=== PATIENT | female | born 1965 | race Caucasian/White ===

== ENCOUNTER 2025-10-08 08:58 | Emergency (ER) | payer BC ==
[~2025-10-08] VITALS: Ht 165.1 cm; Wt 104.0 kg
[~2025-10-08 08:58] MED LIST: ALBU8HFA IH; ESTR1TAB28 PO; GABA300C PO; LEVE250T PO; LEVO125T8 PO; LIOT5TAB10 PO; TRAZ150T78 PO
[2025-10-08 09:07] VITALS: TEMP 99
[2025-10-08 09:24] LABS: LEUKOCYTE ESTERASE ,URINE TRACE (Neg); NITRITES, URINE NEGATIVE (Neg); OCCULT BLOOD,URINE NEGATIVE (Neg)
[2025-10-08 09:25] LABS: URINE HCG NEGATIVE (NEG)
[2025-10-08 09:39] LABS: MEAN PLATELET VOLUME 7.6 FL (7.4-10.4); RED CELL DISTRIBUTION WIDTH 13.5 % (11.5-14.5)
--- NOTE | 2025-10-08 09:51 | Physician Documentation ---
History of Present Illness Chief Complaint: Abdominal Pain Stated Complaint: ABD PAIN Time Seen by MD: 09:22 HPI This is a 59-year-old female with a history of hypothyroidism, depression, s/p appendicectomy and cholecystectomy presents to the ER with a chief complaint of abdominal pain and diarrhea since the last one month which worsened in the last two days. Patient states that she has been having low-grade fever, chronic abdominal pain 6/10 in intensity, diarrhea alternating with constipation since the last one month. Her diarrhea is dark green watery about 3-4 episodes per day on and off. She denies any recent antibiotics. She thinks it might be related to the tenzin candy that she started recently. She also takes baby aspirin for presumed TIAs. Patient also states she had occasional dark stools although not black. She denies any travel or sick contacts. She initially presented to the procedure urgent care and was asked to go to [facility] ER for further imaging. She also thinks she might be having lactose intolerance as she relates her diarrhea to cheese and milk intake recently. Timing/Duration: months Quality/Severity: moderate Location: RUQ, epigastric Radiation: periumbilical Activities on Onset: spontaneous Associated Symptoms: fever, diarrhea Medication Reconciliation Allergies: Coded Allergies: Penicillins (Verified Allergy, Unknown, 07/22/23) Scheduled Cefpodoxime Proxetil (Cefpodoxime Proxetil), 1 TAB PO Q12H Estradiol (Estradiol), 1 TAB PO DAILY, (Reported) Levetiracetam (Levetiracetam), 500 MG PO BID Levothyroxine Sodium (Levothyroxine Sodium), 1 TAB PO QAM, (Reported) Liothyronine Sodium (Liothyronine Sodium), 2 TAB PO DAILY, (Reported) Pantoprazole Sodium (PROTONIX tablet), 40 MG PO DAILY Scheduled PRN Gabapentin (Neurontin), 1 CAP PO TID PRN for pain, (Reported) Trazodone Hcl (Trazodone Hcl), 1 TAB PO HS PRN for sleep, (Reported) albuterol inhaler (Pro-Air Inhaler), 2 PUFFS IH Q4H PRN for SOB or wheezing, (Reported) Past Medical History Past Medical History: CVA/TIA/Stroke, Diabetes, Thyroid (unspecified) Past Surgical History: noncontributory Drug Use: none Lives In: Home Review of Systems Constitutional Constitutional: Low-grade fever, chills, no dizziness, weakness, weight gain or loss Eyes: No pain, erythema, discharge, blurring of vision ENT: No sore throat, epistaxis, tinnitus Cardiovascular: No palpitations, syncope, lower extremity edema, paroxysmal nocturnal dyspnea Respiratory: No hemoptysis Gastrointestinal: Positive for diarrhea, occasional constipation, abdominal pain. Normal appetite. No nausea, vomiting, hematemesis, bloating, melena or fresh blood Genitourinary: No frequency, urgency, nocturia, hematuria or dysuria Musculoskeletal: No arthralgias or myalgias Integumentary: No change in skin, hair, nails. No swelling, bruising, abrasions Neurologic: No headache, neck pain, numbness or tingling of the extremities, weakness Psychiatric: No delusions, depression, loss of interest in normal activity or change in sleep pattern, hallucinations, suicidal ideations Endocrine: No fatigue, weakness, polydipsia, polyuria, change in appetite, heat or cold intolerance, sweating, dry skin Hematological: No bleeding, petechiae, bruising Allergies: No asthma or urticaria Physical Exam Vital Signs: Temperature: 99.0, Source: Oral, Heart Rate: 79, Respiratory Rate: 16, BP: 159/46, Pulse Oximetry: 95, Weight: 104.000 Oxygen Flow Rate: 0 Physical Exam General: Obese middle-aged female, Awake and Alert, in mild acute distress. HEENT: Conjunctiva pink, Sclera clear, Mucus Membranes dry Neck: Supple without masses and tenderness. Resp: Unlabored. Equal breath sounds bilaterally. Heart: Regular rhythm, normal S1 and S2, no rub, murmur or gallop, muffled heart sounds. Abdomen: Tenderness to palpation in the right upper quadrant and epigastric region. Soft no organomegaly. Normal bowel sounds x4 quadrant normoactive. No guarding or rigidity. Extremities: Normal ROM, no swelling, nontender. No cyanosis,clubbing or edema. BRANCH SALES AND SERVICE REPRESENTATIVE: No gross motor or sensory abnormalities. Skin: Warm and Dry. Progress Results/Orders Results/Orders Orders - RENEE VALLADARES, RES Chest,Single View (10/08/25 ) Ct Abdomen Pelvis (10/08/25 09:39) Morphine 4mg/Ml Inj. (Morphine Inj.) (10/08/25 09:40) Lidocaine 5% Patch (Lidoderm 5% Patch) (10/08/25 09:45) Vital Signs 10/08/25 09:07 Temp 99.0 Pulse 79 Resp 16 B/P (MAP) 159/46 Pulse Ox 95 O2 Flow Rate 0 Laboratory Tests Test 10/08/25 09:12 10/08/25 09:26 Urine HCG, Qualitative Negative Urine Comment CBC Comment Chemistry Comments Medical Decision Making Additional information obtaine: other Findings This is a 59-year-old female on aspirin for TIA presented to the ER with abdominal pain likely gastritis, diarrhea likely related to lactose intolerance. Vital signs remained stable. CT abdomen showed no acute pathology and laboratory workup was unremarkable except for UA showing 5-10 urine WBC and small leukocyte esterase. The patient was given one dose of antibiotics IV, IV fluids and IV Protonix in the ER. The patient condition improved significantly with medications and was deemed stable for discharge with oral antibiotics and oral antacids. Differential Dx:Considerations: Esophageal rupture, Esophagitis, Gastritis/PUD, Gastroenteritis, GI hemorrhage, Hernia, Hepatitis, Inflammatory BD, Ischemic bowel, Ovarian cyst/torsion, Pancreatitis, PID, Trauma, intraabdominal, Urinary obstruction, Urinary tract infection, Urolithiasis Additional Comments Lactose intolerance, gastritis Departure Disposition: 01 HOME / SELF CARE / HOMELESS Impression: Primary Impression: Abdominal pain Additional Impressions: Acute gastritis Acute urinary tract infection Condition: Stable Additional Instructions: Follow up with the PCP and art history professor for a possible endoscopy outpatient. We have prescribed a week of antibiotics and antacids for your abdominal pain. Take them as prescribed. Avoid foods high and lactose like milk, cheese, yogurt which are likely causing your diarrhea. Return to the ER if you have worsening abdominal pain or diarrhea or fever. Referrals: NO PRIMARY CARE PROVIDER (PCP) Prescriptions Cefpodoxime Proxetil (Cefpodoxime Proxetil) 100 Mg Tablet 1 TAB PO Q12H for 7 Days, #14 TAB 0 Refills Prov: RENEE VALLADARES, RES 10/08/25 Pantoprazole Sodium (PROTONIX tablet) 40 Mg Tablet.dr 40 MG PO DAILY for 30 Days, #30 TAB.SR Prov: VALLADARESRENEE PAREKH, RES 10/08/25 Additional Comment Seen with PA/SENIOR ARCHITECTURAL DESIGNER The patient is a 59-year-old female with complaints of abdominal pain the patient was found to have a urinary tract infection no other acute pathology was identified. The patient was seen with the resident physician. I have supervised all aspects of the residents care. I have reviewed the resident's note and agree with the note as well as the assessment and plan as written. The patient will be discharged on antibiotics the patient has been advised to return for worsening of her symptoms. The patient's pulse oximetry was interpreted as normal and adequate. The patient's conveyor monitor was interpreted as a sinus rhythm. Signature Scribe Signature: No scribe Attestation: PGY2 resident attestation: Patient was seen and examined the bedside with the attending physician Dr.ohlfs Renee Bhandari MD PGY 2 internal medicine resident RENEE VALLADARES, RES Oct 08, 2025 09:51 ANIL VILLATORO MD Oct 08, 2025 13:05
[2025-10-08 09:55] LABS: CREATININE 0.78 MG/DL (0.40-0.90); TOTAL CARBON DIOXIDE 25.9 MMOL/L (24-32); eCRCL 70 ML/MIN; eGFR 76 ML/MIN
[2025-10-08 09:58] LABS: MUCUS STRANDS FEW /LPF (Neg); RENAL CELLS, URINE MODERATE /HPF; SQUAMOUS EPITHELIAL CELL,UR MODERATE /LPF (FEW)
[2025-10-08] MEDS: morphine 4 MG/ML inj SYRINge IV ONE (10:04)
--- NOTE | 2025-10-08 10:04 | RADIOLOGY REPORT ---
CLINICAL HISTORY: chest wall tenderness, fracture in ribs TECHNIQUE: Single view of the chest was obtained. COMPARISON: DI CHEST,SINGLE VIEW on DOS: 07/22/23 FINDINGS: The heart size and pulmonary vasculature are normal. The lungs are clear. While limited due to single view chest exam, no fracture is seen. IMPRESSION: NO ACUTE CARDIOPULMONARY PROCESS.
[2025-10-08] MEDS: normal saline 1000ml 1,000 ML IV ONE (10:42)
[2025-10-08] MEDS: metroNIDAZOLE-Flagyl 500mg/NS 100 ML IV STA (10:43)
--- NOTE | 2025-10-08 10:55 | RADIOLOGY REPORT ---
CLINICAL HISTORY: abdominal pain RUQ, diahhrea X1 month TECHNIQUE: CT of the abdomen and pelvis was performed without IV contrast. This exam was performed according to our departmental dose optimization program. Up-to-date CT equipment and radiation dose reduction techniques are utilized as appropriate. CTDI 33 DLP 1746 COMPARISON: None FINDINGS: Abdomen/Pelvis: The spleen, pancreas, kidneys, adrenal glands, liver, and bladder are grossly unremarkable. The gallbladder is absent. The abdominal aorta is normal in course and caliber. There are no significant atherosclerotic calcifications. There is no free intraperitoneal air or fluid. There is no enlarged abdominal pelvic lymph node. There is no bowel wall thickening or dilatation. The appendix is not seen, likely absent. Other: The imaged lower thorax demonstrates mild bilateral lower lung linear atelectasis. No acute osseous abnormality is evident. Impression: No acute noncontrast CT abnormality in the abdomen/pelvis. Cholecystectomy.
[2025-10-08] MEDS ORDERED: CEFP100T7 PO (11:17)
[2025-10-08] MEDS ORDERED: PANT-47 PO (11:17)
[2025-10-08] MEDS: ciprofloxacin lact 400MG/200ML 200 ML IV ONE (11:59)
[2025-10-08 12:06] LABS: UA COLLECTION TYPE VOIDED
[2025-10-08 13:07] VITALS: BP 106/66; PULSE 74; RESP 16; O2SAT 99
== END 2025-10-08 13:08 | disposition home or self-care (01) ==
LOC: ER 08:59
DX: K29.00 Acute gastritis without bleeding (principal); N39.0 Urinary tract infection, site not specified; E03.9 Hypothyroidism, unspecified; E11.9 Type 2 diabetes mellitus without complications; G89.29 Other chronic pain; Z86.73 Personal history of transient ischemic attack (TIA), and cerebral infarction without residual deficits; Z88.0 Allergy status to penicillin; Z90.49 Acquired absence of other specified parts of digestive tract; Z79.899 Other long term (current) drug therapy
CPT/HCPCS: 36415; 71045; 74176; 80053; 81001; 81025; 83690; 84443; 85025; 85651; 87088; 96365; 96367; 96368; 96375; 99285; J0744; J2270; J2470; J3490; J7030; Q0163; 96366